=== PATIENT | male | born 1945 | race Caucasian/White ===

== ENCOUNTER → 2025-04-18 | Outpatient (CLI) | payer MEDICARE, OTHER ==
[~2025-04-18] MED LIST: LIDOCAINE HCL 4% LTA SOL 4 ML VIAL ONE
== END | disposition home or self-care (01) ==
LOC: WHH 08:31
PROVIDERS: ATTEND Family Medicine
DX: I87.331 Chronic venous hypertension (idiopathic) with ulcer and inflammation of right lower extremity (principal); L97.812 Non-pressure chronic ulcer of other part of right lower leg with fat layer exposed; I89.0 Lymphedema, not elsewhere classified; G62.9 Polyneuropathy, unspecified; I73.9 Peripheral vascular disease, unspecified; M19.90 Unspecified osteoarthritis, unspecified site; Z87.891 Personal history of nicotine dependence; Z90.49 Acquired absence of other specified parts of digestive tract
CPT/HCPCS: G0463